=== PATIENT | female | born 1985 | race Caucasian/White ===

== ENCOUNTER 2016-05-08 13:14 | Emergency (ER) | payer MEDICAID ==
[2016-05-08 13:24] VITALS: RESP 16
--- NOTE | 2016-05-08 13:34 | EDPHY ---
H & P Smoking Status: Unknown if ever smoked Time Seen by Provider: 05/08/16 13:15 HPI/ROS: CHIEF COMPLAINT: Bipolar, noncompliant with medications HISTORY OF PRESENT ILLNESS: 30-year-old female presents to the emergency department by ambulance on M1 hold. The patient has a history of bipolar. The patient states that she is not on any medications. Upon reviewing her past medical history, patient has a history of bipolar, PTSD and attention deficit hyperactivity disorder as well as mild mental retardation. The the patient in the past has been admitted and has been very resistant to receiving treatment. She does smoke marijuana. She denies any other substance abuse. She denies suicidal homicidal ideation. Currently she has no physical complaints. She states "I'm fine." She denies chest pain or difficulty breathing. Denies abdominal pain or vomiting. REVIEW OF SYSTEMS: Constitutional: No fever, no chills. Eyes: No double or blurry vision. ENT: No sore throat. Respiratory: No cough, no shortness of breath. Cardiac: No chest pain. Gastrointestinal: No abdominal pain, vomiting or diarrhea. Genitourinary: No dysuria. Musculoskeletal: No neck or back pain. Skin: No rashes. Neurological: No headache. (Rika Moy) Past Medical/Surgical History: Mild mental retardation, bipolar, PTSD, attention deficit hyperactivity disorder , cholecystectomy (Rika Moy) Social History: Single and lives with her father in [place] (Rika Moy) Physical Exam: General Appearance: Alert, no distress. No physical signs of trauma to her head. Eyes: Pupils equal and round. Extraocular motions are all intact. ENT: Mouth: Mucous membranes moist. Respiratory: No wheezing, rhonchi, or rales, lungs are clear to auscultation. Cardiovascular: Regular rate and rhythm. Gastrointestinal: Abdomen is soft and nontender, no masses, no rebound or guarding, bowel sounds normal. Neurological: Alert and oriented x 3, cranial nerves II through XII grossly intact Skin: Warm and dry, no rashes. Musculoskeletal: Nontender to palpate along the cervical, thoracic or lumbar spine. Neck is supple. Extremities: Full range of motion and no peripheral edema. Psychiatric: Patient is oriented X 3, there is no agitation. (Yumi Moya M) Constitutional: Initial Vital Signs Temperature (C) 37.6 C 05/08/16 13:22 Heart Rate 115 H 05/08/16 13:22 Respiratory Rate 16 05/08/16 13:22 Blood Pressure 132/85 H 05/08/16 13:22 O2 Sat (%) 95 05/08/16 13:22 O2 Delivery Mode Room Air Allergies/Adverse Reactions: diazepam [From Valium] Allergy (Verified 01/08/13 17:18) lorazepam [From Ativan] Allergy (Verified 01/08/13 17:18) Home Medications: Medication Instructions Recorded NK [No Known Home Meds] 05/08/16 Medical Decision Making ED Course/Re-evaluation: 30-year-old female presents to the emergency department on M1 hold. She has a history of bipolar and has been noncompliant with medications. The patient has methamphetamines in her system and therefore will not be able to be evaluated by mental health for several hours. She became increasingly agitated and for her safety as well as the staff safety, she was given 5 mg of IM Haldol. She is sleeping comfortably now and will be evaluated by mental health likely tomorrow. (Rika Moy) 0400: No acute events overnight. Patient sleeping. Patient signed over to Dr. Enrique at 7am shift-change. Patient [id number]: evaluated at this time, very sleepy, cant keep eyes open. Will need to re-eval in Am. (Jose Luis Carlson) I assumed care of this patient at 7:00 a.m.. Mental health evaluation was performed this morning. She does not meet criteria for continued 72 hour hold. She is not felt to be a danger to herself and others. She has agreed to seek outpatient counseling. She is given information about methamphetamine abuse and resources available to her. I have lifted the 72 hour hold. She is discharged in stable condition. (Mellisa Enrique) Differential Diagnosis: Including but not limited to hypoglycemia, infectious process, electrolyte abnormality, head injury and intoxicants. (Rika Moy) Care Turn Over: Care will be turned over to Dr. Enoch Ramsey for disposition and plan (Rika Moy) - Data Points Laboratory Results: Laboratory Results 05/08/16 13:44 05/08/16 13:44 Medications Given: Discontinued Medications Haloperidol Lactate (Haldol Injection) 5 mg IM EDNOW ONE Stop: 05/08/16 16:42 Last Admin: 05/08/16 16:44 Dose: 5 mg Departure - Departure Disposition: Home, Routine, Self-Care Clinical Impression: Bipolar 1 disorder Condition: Good Instructions: Methamphetamine Abuse (ED) Additional Instructions: Follow up with your psychiatrist on as planned,Karon Heller, at [facility]. I am giving you some information about methamphetamine abuse. Local resources available to help you with this problem are the [facility] and [facility]. I will give you contact information for both of those. I am also referring you to [facility] for ongoing medical care as needed. If you would like to see one of the providers you will need to call and register to be a patient. Referrals: [facility] [Outside] - As per Instructions [facility] [Outside] - As per Instructions [facility] [Outside] - As per Instructions
[2016-05-08 13:51] LABS: % IMMATURE GRANULYOCYTES 0.3 % (0.0-1.1); ABSOLUTE IMMATURE GRANULOCYTES 0.04 10^3/uL (0.00-0.10); ADD DIFF? NO; ADD MORPH? NO; ADD SCAN? NO; ATYPICAL LYMPHOCYTE FLAG 10 (0-99); FRAGMENT RBC FLAG 0 (0-99); HEMATOCRIT 40.2 % (38.0-47.0); HEMOGLOBIN 14.5 g/dL (12.6-16.3); LEFT SHIFT FLG 0 (0-99); LIPEMIA HEMOLYSIS FLAG 90 (0-99); MEAN CELL HEMOGLOBIN 29.9 pg (27.9-34.1); MEAN CELL HEMOGLOBIN CONCENTR. 36.1 g/dL (32.4-36.7); MEAN CELL VOLUME 82.9 fL (81.5-99.8); MEAN PLATELET VOLUME 10.7 fL (8.7-11.7); PLATELET CLUMPS FLAG 10 (0-99); PLATELET COUNT 328 10^3/uL (150-400); RED BLOOD CELL COUNT 4.85 10^6/uL (4.18-5.33); RED CELL DISTRIBUTION WIDTH 12.6 % (11.5-15.2)
[2016-05-08 14:14] LABS: ANION GAP 16 mEq/L (8-16); CARBON DIOXIDE 17 mEq/l (22-31); CHLORIDE 108 mEq/L (97-110); CREATININE 0.8 mg/dL (0.6-1.0); ETHANOL SERUM < 10 mg/dL (0-10); GLOMERULAR FILTRATION RATE > 60; GLUCOSE 122 mg/dL (70-100); POTASSIUM 3.5 mEq/L (3.5-5.2); SODIUM 141 mEq/L (134-144)
[2016-05-08] MEDS ORDERED: HALOPERIDOL LACT 5 MG/ML INJ ONE (16:38)
[2016-05-08] MEDS ORDERED: HALOPERIDOL LACT 5 MG/ML INJ IM ONE (16:41)
[2016-05-08 22:45] VITALS: BP 112/77; TEMP 98.1; O2SAT 97
[2016-05-09 08:56] VITALS: PULSE 99
== END 2016-05-09 12:09 | disposition home or self-care (01) ==
LOC: EDUNIT#
DX: F31.9 Bipolar disorder, unspecified (principal)
CPT/HCPCS: 80305; G0480

== ENCOUNTER 2017-03-13 17:19 | Inpatient (IN) | payer MEDICAID ==
--- NOTE | 2017-03-13 17:24 | EDPHY ---
H & P Time Seen by Provider: 03/13/17 17:24 - Personal History Tetanus Vaccine Date: less than 8 years - Medical/Surgical History Hx Asthma: No Hx Chronic Respiratory Disease: No Hx Diabetes: No Hx Cardiac Disease: No Hx Renal Disease: No Hx Cirrhosis: No Hx Alcoholism: No Hx HIV/AIDS: No Hx Splenectomy or Spleen Trauma: No - Social History Smoking Status: Unknown if ever smoked Allergies/Adverse Reactions: diazepam [From Valium] Allergy (Verified 01/08/13 17:18) lorazepam [From Ativan] Allergy (Verified 01/08/13 17:18) Home Medications: Medication Instructions Recorded NK [No Known Home Meds] 05/08/16 Medical Decision Making ED Course/Re-evaluation: CHIEF COMPLAINT: Psychiatric evaluation HISTORY OF PRESENT ILLNESS: must have 4 elements: Location, Quality, Severity , Duration, Timing, Context, Modifying Factors, Associated Signs and Symptoms REVIEW OF SYSTEMS: A 10 point review of systems was performed and is negative with the exception of the elements mentioned in the history of present illness. PHYSICAL EXAM: General Appearance: Alert, well hydrated, appropriate, and non-toxic appearing. Head: Atraumatic without scalp tenderness or obvious injury Eyes: Pupils equal, round, reactive to light and accommodation, EOMI, no trauma , no injection. Ears: Clear bilaterally, no perforation, normal landmarks Nose: Atraumatic, no rhinorrhea, clear. Throat: There is no erythema or exudates, no lesions, normal tonsils, mucus membranes moist. Neck: Supple, 2+ carotid upstroke, nontender, no lymphadenopathy. Respiratory: No retractions, no distress, no wheezes, and no accessory muscle use. Lungs are clear to auscultation bilaterally. Cardiovascular: Regular rate and rhythm, no murmurs, rubs, or gallops. Bilateral carotid, radial, dorsalis pedis, and posterior tibial pulses intact. Good capillary refill all extremities. Gastrointestinal: Abdomen is soft, nontender, non-distended, no masses, no rebound, no guarding, no peritoneal signs. Musculoskeletal: Normal active ROM of all extremities, atraumatic. Neurological: Alert, appropriate, and interactive. The patient has normal DTRs and non-focal cranial nerves, motor, sensory, and cerebellar exam. Skin: No rashes, good turgor, no nodules on palpation. Past medical history: Past surgical history: Family history: Social history: DIFFERENTIAL DIAGNOSIS: The differential diagnosis for the patient's depression included but was not limited to functional and major depression, situational depression, medication side effect, drugs, and alcohol abuse. MEDICAL DECISION MAKING: Patient is in no acute distress and is hemodynamically stable. We are awaiting psychiatric team's evaluation. Patient has known history of psychiatric disorders and is here for evaluation. Departure - Departure Referrals: NONE *PRIMARY CARE P,. [Primary Care Provider] - As per Instructions
[2017-03-13] MEDS ORDERED: OLANZapine DISINTEGR 5 MG TAB PO ONE (17:34)
[2017-03-13] MEDS ORDERED: LORazepam 1 MG TAB PO ONE (17:34)
--- NOTE | 2017-03-13 17:37 | EDPHY ---
H & P Stated Complaint: The - Personal History Tetanus Vaccine Date: less than 8 years - Medical/Surgical History Hx Asthma: No Hx Chronic Respiratory Disease: No Hx Diabetes: No Hx Cardiac Disease: No Hx Renal Disease: No Hx Cirrhosis: No Hx Alcoholism: No Hx HIV/AIDS: No Hx Splenectomy or Spleen Trauma: No - Social History Smoking Status: Unknown if ever smoked Time Seen by Provider: 03/13/17 17:24 HPI/ROS: CHIEF COMPLAINT: "The greeenbelly dykes are eating out my vagina at the custodial " HISTORY OF PRESENT ILLNESS: 31-year-old female history of bipolar disorder arrives via police on an M1 hold after observed erratic, likely psychotic behavior. Per police the parents were called by the patient with manic psychotic statements by the patient and upon arrival patient exhibited similar behavior. History is challenging to pain and patient as she pre currently speaks about "green belly dykes that are trying to eat out my vagina at the custodial." REVIEW OF SYSTEMS: A ten point review of systems was performed and is negative with the exception of the items mentioned in the HPI PAST MEDICAL & SURGICAL HISTORY: bipolar disorder SOCIAL HISTORY:Denies illicit drug use PHYSICAL EXAM (Prior to examination, patient consented to physical exam, hands were washed and my usual and customary physical exam procedures followed) 1) GENERAL: Poorly kept, rapid, flight of ideas, word salad 2) HEAD: Normocephalic, atraumatic 3) HEENT: Pupils equal, round, reactive to light bilaterally. Sclera anicteric. 4) NECK: Full range of motion, no meningeal signs. 5) LUNGS: Clear auscultation bilaterally, no wheezes, no rhonchi, no retractions. 6) HEART: Regular rate and rhythm, no murmur, no heave, no gallop. 7) ABDOMEN: No guarding, no rebound, no focal tenderness, 8) MUSCULOSKELETAL: No peripheral edema or discoloration. 9) BACK: No visual or palpable abnormality. 10) SKIN: No rash, no petechiae. 11) Psychiatric: Patient is oriented X 3, there is no agitation. DIFFERENTIAL DIAGNOSIS: In no particular include but limited to suicidal ideation, homicidal ideation, psychosis, maryse (Sam,Lloyd Tessie) Constitutional: Initial Vital Signs Temperature (C) 36.8 C 03/13/17 17:37 Heart Rate 115 H 03/13/17 17:37 Respiratory Rate 16 03/13/17 17:37 Blood Pressure 143/87 H 03/13/17 17:37 O2 Sat (%) 98 03/13/17 17:37 O2 Delivery Mode Room Air Allergies/Adverse Reactions: diazepam [From Valium] Allergy (Verified 01/08/13 17:18) Home Medications: Medication Instructions Recorded Albuterol [Proventil Inhaler HFA 1 - 2 puffs IH Q4H PRN 03/14/17 (*)] Medical Decision Making ED Course/Re-evaluation: 5:40 p.m.: Patient is acutely manic and psychotic. Will administer antipsychotics. 7:18 p.m.: Patient agreed to oral Zyprexa and Ativan. She remains agitated, noncompliant, will not allow staff to obtain blood work are change into a gown. Will administer IM Haldol and re-evaluate. 9:00 p.m.: Re-evaluation, sleeping 11:00 p.m.: Care turned over to Dr. Jose Luis Carlson.. Mental health evaluation pending (Lloyd Vargas) 0700: Signed over at 7:00 a.m. shift change to Dr. Vargas. (Jose Luis Carlson) I took over care of this patient at 7:00 a.m.. This patient is on an M1 hold. The patient is psychotic and has a history of bipolar disorder. The patient was given Zyprexa and Haldol on arrival. The patient is to be admitted. Behavioral Health searching for placement. 3:30 p.m., this patient still awaits placement by [facility]. There have been no issues during my shift regarding her care. Care turned over at this time to Dr. Mellisa Enrique. (Patrick Ortiz) I assumed care of this patient from Dr. Ortiz at 3:00 p.m.. She remains on an M1 hold, awaiting placement. 10:45: Awaiting placement. 11:00: Patient not cooperating with MH electronics instructor, she is refusing to talk. Will give ativan 2 mg PO and Zyprexa 10 mg PO. Care transferred to Dr. Evans at 11 PM. (Mellisa Enriuqe) 5:30 a.m.- The patient has been stable throughout my shift. She was evaluated by EPS. They are looking for placement for the patient. At 7:00 a.m., I anticipate the case will be signed out to the oncoming provider Dr. Quintanilla pending placement. ( Tresa Evans) Other Provider: 0700 care assumed by me from Dr. Evans pending placement. 0855 patient has been accepted to [address] kristine armendariz. I have completed the EMTALA. (Howard Quintanilla) - Data Points Laboratory Results: Laboratory Results 03/13/17 20:15 03/13/17 20:15 Medications Given: Discontinued Medications Haloperidol Lactate (Haldol Injection) 5 mg IM EDNOW ONE Stop: 03/13/17 19:19 Last Admin: 03/13/17 20:43 Dose: Not Given Lorazepam (Ativan) 1 mg PO EDNOW ONE Stop: 03/13/17 17:35 Last Admin: 03/13/17 17:52 Dose: 1 mg Lorazepam (Ativan) 2 mg PO EDNOW ONE Stop: 03/14/17 23:09 Last Admin: 03/14/17 23:17 Dose: 2 mg Olanzapine (Zyprexa Zydis) 10 mg PO EDNOW ONE Stop: 03/13/17 17:35 Last Admin: 03/13/17 17:53 Dose: 10 mg Olanzapine (Zyprexa Zydis) 10 mg PO EDNOW ONE Stop: 03/14/17 23:09 Last Admin: 03/14/17 23:17 Dose: 10 mg Departure - Departure Clinical Impression: Acute psychosis Referrals: NONE *PRIMARY CARE P,. [Primary Care Provider] - As per Instructions
[2017-03-13] MEDS ORDERED: HALOPERIDOL LACT 5 MG/ML INJ IM ONE (19:18)
[2017-03-13 20:32] LABS: PLATELET COUNT 314 10^3/uL (150-400)
[2017-03-14] MEDS ORDERED: LORazepam 1 MG TAB PO ONE (23:08)
[2017-03-14] MEDS ORDERED: OLANZapine DISINTEGR 5 MG TAB PO ONE (23:08)
[2017-03-15] MEDS ORDERED: LORazepam 1 MG TAB PO ONE (09:29)
[2017-03-15] MEDS ORDERED: OLANZapine DISINTEGR 10 MG TAB PO ONE (09:29)
[2017-03-15] MEDS ORDERED: ALBUTEROL 60 PUFFS/8 GM MDI IH PRN (11:13)
[2017-03-15] MEDS ORDERED: MAG HYDROX/AL HYDROX/SIMETH 30 ML UDCUP PO PRN (11:14)
[2017-03-15] MEDS ORDERED: LORazepam 0.5 MG TAB PO PRN (11:14)
[2017-03-15] MEDS ORDERED: MAGNESIUM HYDROXIDE 30 ML UDCUP PO PRN (11:14)
[2017-03-15] MEDS ORDERED: OLANZapine DISINTEGR 10 MG TAB PO PRN (11:14)
[2017-03-15] MEDS ORDERED: NICOTINE POLACRILEX 2 MG GUM B PRN (11:14)
[2017-03-15] MEDS ORDERED: ACETAMINOPHEN 325 MG TAB PO PRN (11:14)
[2017-03-15] MEDS ORDERED: ALBUTEROL 200 PUFFS/18 GM MDI IH PRN (11:33)
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
[2017-03-15] MEDS: FLUTICASONE/SALMETER 100/50MCG DISKUS IH SCH (20:26)
--- NOTE | 2017-03-15 21:50 | GCON ---
[f rep st] CONSULTATION INTERNAL MEDICINE CONSULTATION DATE OF CONSULTATION: 03/15/[address] Nixon. REASON FOR REFERRAL: Medical clearance for inpatient behavioral health stay. HISTORY OF PRESENT ILLNESS: This patient was brought in by police on an M1 hold for erratic and likely psychotic behavior. She was agitated in the emergency department and required emergency medication with olanzapine and haloperidol. She was eventually evaluated by the mental health team and admitted for further psychiatric care. She currently is without acute medical complaint, but reports that she has asthma and would like to be on Advair. PAST MEDICAL HISTORY: 1. Mental health issues with diagnoses of acute psychosis and bipolar 1 disorder. 2. Asthma. PAST SURGICAL HISTORY: She denies any surgeries. MEDICATIONS: She was on albuterol. ALLERGIES: There is an allergy listed to diazepam. SOCIAL HISTORY: She is currently homeless and is not working. She is a cigarette smoker. FAMILY HISTORY: The patient was adopted and does not know her family history. REVIEW OF SYSTEMS: She reports a recent episode of black stool and says that this happened because her intestines were frozen. She currently reports mild abdominal pain in the right upper quadrant. She denies fevers or chills, weight gain, weight loss, cough, dyspnea, nausea, or vomiting. She reports she has some constipation. She has a good appetite. She denies dysuria or urinary frequency. Otherwise, a 10-point review of systems was negative. PHYSICAL EXAMINATION: VITAL SIGNS: Blood pressure is 132/78. At 11 this morning, her pulse was recorded as 146. Respiratory rate is 18. Oxygen saturation is 98% on room air. Temperature is 36.8 degrees centigrade. Her weight is 81 kg, for a body mass index of 28. GENERAL: This is an overweight- appearing woman, sitting at a table in the dining room eating cereal with milk. Cooperative and in no acute distress. HEENT: Extraocular movements are intact. Pupils are equal, round, and reactive to light. Mucous membranes are moist. Dentition is in fair condition. She has a moderately crowded airway, Mallampati class 3. NECK: Supple. HEART: Regular rate and rhythm, with no murmurs, rubs, or gallops, and she is currently not tachycardic. LUNGS: Clear to auscultation bilaterally. ABDOMEN: Soft. Slightly tender in the right upper quadrant. Nondistended and with normoactive bowel sounds. EXTREMITIES: There is no cyanosis, clubbing, or edema. NEUROLOGIC: She is alert and oriented x3. Cranial nerves 2-12 are grossly intact. There is no focal weakness. Sensation is intact to light touch. LABORATORY STUDIES: From the emergency department: CBC was normal other than a slight decrement of absolute basophils, of no clinical significance. Serum chemistry revealed an elevated chloride at 111. Otherwise, renal function and electrolytes were within normal limits. Beta hCG was negative for . Toxicology screens on the urine and serum were negative for ethyl alcohol, salicylates, acetaminophen, or substances of abuse. On review of past labs, there is a CBC from 05/08/2016, and it was essentially the same other than an elevated white blood cell count, as it is currently. ASSESSMENT AND RECOMMENDATIONS: 1. Mental health problems. Pending further evaluation and management per Psychiatry and the mental health team. 2. Questionable history of asthma. She reports that she was on Advair per [facility]. Per her request, will order Advair. Albuterol has already been ordered. It is unclear to me whether she truly has asthma, as she currently has a benign exam. She should follow up with her primary care provider after discharge to determine whether she has an ongoing need for Advair. 3. Tobacco dependence syndrome. She is unwilling to consider smoking cessation. 4. Abdominal pain. Unclear complaint regarding possible melena and her "intestines freezing." Lack of an elevated white blood cell count is reassuring. I will add on liver function tests, as she has right upper quadrant discomfort on exam. I see no medical contraindications to this patient's continued stay in the inpatient behavioral health unit or to any psychiatric medications or procedures. Thank you very much for including me in the care of this patient, and please do not hesitate to contact me or the hospitalist service should there be a need for further medical evaluation. /[id number]/MODL MTDD
[2017-03-16 07:01] VITALS: RESP 16; TEMP 98.4
[2017-03-16] MEDS: FLUTICASONE/SALMETER 100/50MCG DISKUS IH SCH ×2 (08:31→20:11)
--- NOTE | 2017-03-16 15:17 | SOAPPROG ---
[facility] Progress Note Assessment/Plan: Assessment: Plan: 03/16/17 15:16 Schizoaffective D/o: Is likely at functional baseline. It appears futile to seek COM as pt will certainly not take them after d/c. She does not appear to meet criteria for STC. Will convert to voluntary to allow time for d/c planning. Subjective: Pt seen, discussed with staff. Reports feeling "just fine." Pleasantly conversant with me. Demonstrates moderate level of psychomotor agitation, pacing. Cooperative, no behavioral issues or aggression. Continues to refuse all psychotropic meds. Mother called and said psychotropic medications have not been helpful for her in the past. Pt continues to threaten "self-harm" if she is discharged to the street. Objective: Vital Signs Temp Pulse Resp BP Pulse Ox 36.9 C 79 16 129/68 H 94 03/16/17 06:00 03/16/17 06:00 03/16/17 06:00 03/16/17 06:00 03/16/17 06:00 - Time Spent With Patient Time Spent With Patient: 25" ICD10 Worksheet Patient Problems: Problems Problem Status Onset Acute psychosis Acute
[2017-03-16] MEDS ORDERED: MELATONIN 3 MG TAB PO SCH (21:00)
[2017-03-17 06:40] VITALS: BP 128/71; PULSE 71; O2SAT 96
[2017-03-17] MEDS: FLUTICASONE/SALMETER 100/50MCG DISKUS IH SCH (08:58)
--- NOTE | 2017-03-18 02:18 | BDS ---
[f rep st] BEHAVIORAL HEALTH DISCHARGE SUMMARY REASON FOR ADMISSION: Patient is a 31-year-old female with a history of Bipolar diagnosis, mild mental retardation, impulsive and aggressive behaviors and chronic treatment non-compliance. She was admitted to our unit on transfer from the emergency department due to some disruptive behaviors in the community. She apparently has been homeless for some period of time, which she states is a week, but it is unclear. She called her parents in crisis, and they met her at a parking lot at [employer], and she was extremely agitated, screaming, threatening and was in some form physically aggressive with them. This is not a new thing for her as she admits to hating them. Regardless, police were called. She was brought to the hospital and admitted for further evaluation. ADMITTING DIAGNOSES: 1. Bipolar I disorder, most recent episode manic, severe, with psychosis. 2. History of post-traumatic stress disorder. 3. 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 4. Homelessness. 5. Family conflicts. 6. Lack of supports. 7. Chronic illness. ADMITTING PHYSICAL EXAMINATION: Performed by Dr. Juan Perrin reveals no acute physical findings. ADMISSION LABORATORY: CBC is normal. Serum chemistries are normal. Liver function is normal. Beta HCG was negative. Urine drug screen was negative and negative again on repeat. HOSPITAL COURSE: Patient was [facility] on an M1 hold. She was mildly agitated, talking in a fairly pressured manner, displaying some disorganized thoughts. She had a lot of somatic preoccupations, stating that she was having bowel problems because her intestines froze and that she could not be homeless outside any longer. She stated in the beginning of our initial evaluation that she needed a place to live or she would "say I am suicidal so you can't discharge me." She stated that she believes that we can get her an apartment and that she will essentially claim to be suicidal until this occurs. I informed her from the very beginning that we have no ability to get housing for people and that she would likely have to go to a long-term when she left. She states that she will not go to a long-term, though she has never been to one because of a delusion about "green-bellied lesbians" and goes into graphic detail about sexual acts. She also refused to contact or work with her parents, though they called the unit numerous times requesting to meet with her and to make a plan. She described them as "my paper parents" because she is adopted and stated that she hates them. I discussed with the patient potential treatments, and she refuses all medications. Past treatment records, her parents report and her classification case manager from [facility]' report indicate that medications have not been helpful to her in the past. This may be due to concomitant drug use and noncompliance. During her stay, she received no medications whatsoever except for some E-meds she got in the ER for agitation. Pt continued to refuse all medications, all therapeutic interactions and any efforts to engage her in discharge planning. On the day of discharge it was agreed that she had achieved maximum benefit from being in the hospital and informed her she was to be discharged. She stated to me that she was not ready to leave because she did not have a home. I told her that I had already discussed this with her, that we were not able to provide housing, and she stated, "Then I guess I'm suicidal." When I informed her that that was insincere and would not keep her from discharging, she said, "Fine, then I am homicidal too." She then chun to the nurses' station where she announced loudly, "I need to be on suicide and homicide precautions and I can't leave the hospital." When I informed her that she would still discharge as planned, she said to me, "Fine, then I will go to the ER and tell them I'm suicidal and homicidal and they will have to readmit me." I discussed with her the fact that that decision would likely come to me and that I would not readmit her. Several hours later, I was contacted and notified that she was indeed in the emergency department stating she was suicidal and homicidal and needed to be back in the hospital. At the time of this dictation, her disposition is unknown. CONDITION ON DISCHARGE: Stable. Despite her disingenuous statements, I did not deem her to be an imminent risk to herself or others. She remained delusional, though this is a chronic process and not acute, that is not amenable to medications per her history. DISCHARGE MEDICATIONS: Albuterol and Combivent inhalers. DISCHARGE DIAGNOSES: 1. Bipolar I disorder, most recent episode manic. 2. Chronic psychosis, likely schizoaffective disorder bipolar type. 3. Mild mental retardation. 4. Homelessness. 5. Family conflicts. 6. Lack of resources. 7. Chronic illness. 8. Malingering DISPOSITION: Patient was released from [address] [place] [address] to her own recognizance. She continued to refuse to allow her FOLLOWUP: The patient was given appointments at [facility] for next week with her classification case manager. LEGAL COURSE: Patient was converted to a voluntary status at the expiration of her M1 hold. /[id number]/MODL MTDD
== END 2017-03-17 11:37 | disposition home or self-care (01) | DRG 885 ==
LOC: BBEH 03-15 10:07
PROVIDERS: ADMIT Psychiatry & Neurology Psychiatry; ATTEND Psychiatry & Neurology Psychiatry
DX: F31.2 Bipolar disorder, current episode manic severe with psychotic features (principal); J45.909 Unspecified asthma, uncomplicated; F17.200 Nicotine dependence, unspecified, uncomplicated; R10.9 Unspecified abdominal pain; F70 Mild intellectual disabilities; F43.10 Post-traumatic stress disorder, unspecified; Z59.0 Homelessness; Z91.14 Patient's other noncompliance with medication regimen
CPT/HCPCS: 80305; G0480; J1630

== ENCOUNTER 2017-03-17 12:29 | Emergency (ER) | payer MEDICAID ==
--- NOTE | 2017-03-17 12:33 | EDPHY ---
H & P Time Seen by Provider: 03/17/17 12:30 HPI/ROS: CHIEF COMPLAINT: [ ] HISTORY OF PRESENT ILLNESS: [31-year-old female history of schizoaffective disorder, arrives by ambulance. Patient was discharged from [address] yesterday ] [PRIMARY CARE PROVIDER:][ ] REVIEW OF SYSTEMS: [A ten point review of systems was performed and is negative with the exception of the items mentioned in the HPI] [Constitutional: No fever, no chills. Eyes: No visual complaint ENT: No sore throat. Cardiovascular: No chest pain, no palpitations. Respiratory: No cough, no shortness of breath. Gastrointestinal: No abdominal pain, no vomiting. Genitourinary: No urinary complaints Musculoskeletal: No back pain. Skin: No rashes. No lesions. Neurological: No headache. Aside from elements discussed in the HPI, a comprehensive 10 point review of systems was reviewed and is negative.] [PAST MEDICAL & SURGICAL HISTORY:] [ No pertinent medical or surgical history ] SOCIAL HISTORY:[ ] [FAMILY HISTORY:][ No pertinent family history ] PHYSICAL EXAM (Prior to examination, patient consented to physical exam, hands were washed and my usual and customary physical exam procedures followed) 1) GENERAL: [Well-developed, well-nourished, alert and oriented. Appears to be in no acute distress.] 2) HEAD: [Normocephalic, atraumatic] 3) HEENT: [Pupils equal, round, reactive to light bilaterally. Sclera anicteric. ] [Nasopharynx, oropharynx, clear, no lesions. ] [Ears bilaterally with normal tympanic membranes.] 4) NECK: [Full range of motion, no meningeal signs.] 5) LUNGS: [Clear auscultation bilaterally, no wheezes, no rhonchi, no retractions.] 6) HEART: [Regular rate and rhythm, no murmur, no heave, no gallop.] 7) ABDOMEN: [No guarding, no rebound, no focal tenderness, negative McBurney's, negative Hancock's, negative Rovsing's, negative peritoneal sign], 8) MUSCULOSKELETAL: [Moving all extremities, no focal areas of tenderness, no obvious trauma. No peripheral edema or discoloration.] 9) BACK: [No CVA tenderness, no midline vertebral tenderness, no fluctuance, no step-off, no obvious trauma, no visual or palpable abnormality.] 10) SKIN: [No rash, no petechiae.] [11) Psychiatric: Patient is oriented X 3, there is no agitation.] DIFFERENTIAL DIAGNOSIS: [ ] - Personal History Tetanus Vaccine Date: less than 8 years - Medical/Surgical History Hx Asthma: No Hx Chronic Respiratory Disease: No Hx Diabetes: No Hx Cardiac Disease: No Hx Renal Disease: No Hx Cirrhosis: No Hx Alcoholism: No Hx HIV/AIDS: No Hx Splenectomy or Spleen Trauma: No Other PMH: Asthma, psych - Social History Smoking Status: Heavy smoker Allergies/Adverse Reactions: diazepam [From Valium] Allergy (Verified 01/08/13 17:18) Home Medications: Medication Instructions Recorded Albuterol [Proventil Inhaler HFA 1 - 2 puffs IH Q4H PRN #1 mdi 03/17/17 (*)] Fluticasone/Salmeter 100/50Mcg 1 puffs IH BID #1 disk 03/17/17 [Advair 100/50 (*)] Medical Decision Making ED Course/Re-evaluation: 12:34 p.m.: I reviewed the patient's old medical records including progress note by Dr. Nixon, I am familiar with her prior emergency department visits.
[2017-03-17] MEDS ORDERED: OLANZapine DISINTEGR 5 MG TAB PO ONE (14:15)
[2017-03-17] MEDS ORDERED: LORazepam 1 MG TAB PO ONE (14:15)
--- NOTE | 2017-03-17 14:15 | EDPHY ---
H & P Stated Complaint: JUST DC'D FROM [facility]. IS NOW HOMICIDAL - Personal History LMP (Females 10-55): Unknown Current Tetanus/Diphtheria Vaccine: Yes Current Tetanus Diphtheria and Acellular Pertussis (TDAP): Yes Tetanus Vaccine Date: less than 8 years - Medical/Surgical History Hx Asthma: No Hx Chronic Respiratory Disease: No Hx Diabetes: No Hx Cardiac Disease: No Hx Renal Disease: No Hx Cirrhosis: No Hx Alcoholism: No Hx HIV/AIDS: No Hx Splenectomy or Spleen Trauma: No Other PMH: Asthma, psych - Social History Smoking Status: Heavy smoker Time Seen by Provider: 03/17/17 12:30 HPI/ROS: CHIEF COMPLAINT: "I was discharged too early " HISTORY OF PRESENT ILLNESS: 31-year-old female history of schizoaffective disorder, homelessness, was discharged from [address] yesterday, self presents to the ER after calling for an ambulance stating that she believes she was discharged prematurely states that she is still feeling agitation, still having thoughts of hurting other people, "If I leave here I'll go to the [employer] store and buy a crococile and stick in the crotch of that cunt." She denies suicidal or homicidal ideations. Denies drug or alcohol use. REVIEW OF SYSTEMS: A ten point review of systems was performed and is negative with the exception of the items mentioned in the HPI PAST MEDICAL & SURGICAL HISTORY: Schizoaffective disorder SOCIAL HISTORY: Homeless PHYSICAL EXAM (Prior to examination, patient consented to physical exam, hands were washed and my usual and customary physical exam procedures followed) 1) GENERAL: Poorly kept. Agitated. 2) HEAD: Normocephalic, atraumatic 3) HEENT: Pupils equal, round, reactive to light bilaterally. Sclera anicteric. 4) NECK: Full range of motion, no meningeal signs. 5) LUNGS: Clear auscultation bilaterally, no wheezes, no rhonchi, no retractions. 6) HEART: Regular rate and rhythm, no murmur, no heave, no gallop. 7) ABDOMEN: No guarding, no rebound, no focal tendernes, 8) MUSCULOSKELETAL: No peripheral edema or discoloration.] 9) BACK: No visual or palpable abnormality. 10) SKIN: No rash, no petechiae. 11) Psychiatric: Patient is oriented X 3, agitated, flight of ideas DIFFERENTIAL DIAGNOSIS: In no particular include but limited to depression, maryse, psychosis (Lloyd Vargas Tessie) Constitutional: Initial Vital Signs Temperature (C) 36.7 C 03/17/17 13:15 Heart Rate 90 03/17/17 13:15 Respiratory Rate 19 03/17/17 13:15 Blood Pressure 130/92 H 03/17/17 13:15 O2 Sat (%) 96 03/17/17 13:15 O2 Delivery Mode Room Air Allergies/Adverse Reactions: No Known Allergies Allergy (Unverified 03/18/17 11:46) Home Medications: Medication Instructions Recorded Albuterol [Proventil Inhaler HFA 1 - 2 puffs IH Q4H PRN #1 mdi 03/17/17 (*)] Fluticasone/Salmeter 100/50Mcg 1 puffs IH BID #1 disk 03/17/17 [Advair 100/50 (*)] ALPRAZolam [Xanax 0.25 MG (*)] 0.25 mg PO DAILY PRN 03/18/17 LORazepam [Ativan (*)] 0.5 mg PO DAILY PRN 03/18/17 Medical Decision Making ED Course/Re-evaluation: 2:13 p.m.: Phone consultation with EPS medical driver, Jose J, who will evaluate patient after standard laboratory orders obtained. 5:00 p.m.: Care turned over to Dr. Robles Interiano, awaiting mental health evaluation. Patient in the ER voluntarily, not currently on a mental health hold or D tender. She was given oral Ativan earlier, declined Zyprexa. At this time she is eating food, calm, cooperative. (Lloyd Vargas Tessie) 2129: Pt is signed out to me at change of shift by Dr. Interiano. Awaiting evaluation. 2299: The patient is signed out to Dr. Quintanilla at change of shift. (Viki Hernandez) Patient remained stable on my shift. Care was turned over at 11:[address] Quintanilla (IvetteEmmett) Other Provider: PHYSICIAN DOCUMENTATION: The patient was evaluated and managed by the Physician Plumbing Technician and myself. I have reviewed the chart and agree with the findings and plan of care as documented. In addition, I examined the patient myself. History confirmed as recent discharge for inpatient psychiatry. Physical findings as follows: Patient is currently cooperative and calm in the emergency department. I am the secondary supervising physician. 1725: patient placed on a hold for delusional and danger to others. Plan for inpatient placement at this time. References to "Captsriram Horton "and a non-existent twin brother, homicidal thoughts. The patient apparently did make explicit homicidal threats to Fina Abernathy and her , and the medical driver tells me that these people are aware and the police are involved. (Robles Interiano) 03/17 2299 patient signed out to me from Dr. Hernandez pending placement. 03/18 699 patient signed out to Dr. Mackey pending placement. There been no issues during my care this patient overnight. 03/18 2299 care Re assumed by me from Dr. Steele pending placement. 03/19 699 patient signed back out to Dr. Mackey pending placement. No issues during my care this patient overnight. (Howard Quintanilla) I assumed care of the patient at 0700. She remained stable throughout my shift. Psychiatric placement is still pending. She will be turned over to Dr. Steele at 3:00 p.m.. I spent some time with the patient at 7:30 a.m. in the morning. I reviewed Dr. Kishor Nixon's discharge summary. The patient tells me she is no longer suicidal or homicidal. She does feel as if she can contract for safety. She would like to be discharged from the emergency department in get her therapy dog. I do believe the patient likely has been malingering over the past several days secondary to her homelessness. The patient continues to report she has no interest in taking medications for her bipolar mood disorder. She is a competent decision maker to do so. The futility of inpatient psychiatric hospitalization was clearly demonstrated during the patient's last admission to the inpatient unit at [facility]. We have made arrangements for the patient to get her therapy dogs at 10 o'clock today when the animal senior living opens. I have vacated the patient's 72 hr mental health hold at 8 o'clock in the morning (Joey Mackey) - Data Points Laboratory Results: Laboratory Results 03/17/17 14:20 03/17/17 14:20 Medications Given: Discontinued Medications Lorazepam (Ativan) 1 mg PO EDNOW ONE Stop: 03/17/17 14:16 Last Admin: 03/17/17 14:23 Dose: 1 mg Olanzapine (Zyprexa Zydis) 5 mg PO EDNOW ONE Stop: 03/17/17 14:16 Last Admin: 03/17/17 14:23 Dose: Not Given Departure - Departure Disposition: Home, Routine, Self-Care Clinical Impression: Schizoaffective disorder Qualifiers: Schizoaffective disorder type: unspecified Qualified Code(s): F25.9 - Schizoaffective disorder, unspecified Condition: Good Instructions: Bipolar Disorder (ED) Additional Instructions: 1. Please follow-up with the mental health resources provided in the ED today. 2. [facility] does operate a 24/7 psychiatric crisis unit located at [address] [place] [address]. The telephone number for the 24 hour crisis center is [phone]. 3. Please return to the ED if you are feeling suicidal, having thoughts of harming yourself/others or should you feel unsafe or have worsening symptoms. Referrals: [facility] [Outside] - As per Instructions
[2017-03-17 14:32] LABS: PLATELET COUNT 301 10^3/uL (150-400)
[2017-03-18 23:20] VITALS: RESP 20
[2017-03-19 09:34] VITALS: BP 138/77; PULSE 81; TEMP 97.5; O2SAT 94
--- NOTE | 2017-03-19 12:55 | ASMTCMCOM ---
CM Note CM Note Notes: Requested to assist patient with transportation to the [facility] [employer] ) where her dog, Captain Horton, has been staying for the last couple of days during pt's ED visit. Reportedly pt's adoptive parents Pavan and Ale Abernathy (c:[phone], h: [phone]) relinquished the dog to the [employer] because patient was in the ED and they were unable to care for the dog. Medicaid cab (conf# [id number]) arranged for patient to go to the [employer] at [facility] [place] [address]. This CM called the [employer] and confirmed dog is there and that patient will be able to reclaim him. CM available for further assistance if needed. Date Signed: 03/19/2017 12:55 PM Electronically Signed By:Paulina Funk RN
--- NOTE | 2017-03-19 12:58 | ASDISCHSUM ---
Discharge Information Plan Status:Homeless/Fdc Medically Cleared to Leave: Discharge Date:03/19/2017 09:55 AM CM D/C Disposition:Streets (Homeless) ADT D/C Disposition:Home, Routine, Self-Care Projected Discharge Date:03/19/2017 09:55 AM Transportation at D/C:Medicaid Transportation Discharge Delay Reason: Follow-Up Date:03/19/2017 09:55 AM Discharge Slot: Final Diagnosis: Placement Information Patient Contact Information Contact Name:STALINPEEWEE Relationship:Father Address:[address] [place] [address] City:[place] Alternate Phone: [facility]/Zip Code:[place] [address] Email: Financial Information Financial Class: Primary Plan Desc:MEDICAID [place] Primary Plan Number:[id number] Secondary Plan Desc: Secondary Plan Number: Assessment Information [facility] CM Progress Note CM Note CM Note Notes: Requested to assist patient with transportation to the [facility] ([phone]) where her dog, Captain Horton, has been staying for the last couple of days during pt's ED visit. Reportedly pt's adoptive parents Pavan and Ale Abernathy (c:[phone], h: [phone]) relinquished the dog to the [facility] because patient was in the ED and they were unable to care for the dog. Medicaid cab (conf# [id number]) arranged for patient to go to the [facility] at [address] [place] [address]. This CM called the [facility] and confirmed dog is there and that patient will be able to reclaim him. CM available for further assistance if needed. Date Signed: 03/19/2017 12:55 PM Electronically Signed By:Paulina Funk RN LACE LACE Acuity / Level of Answers: No Care: Did the patient have an inpatient admission? # of Emergency department Answers: 1-2 visits in the last 6 months Social determinants Answers: Homelessness (street, halfway) Mental health diagnosis (anxiety, depression, pers onality disorders, etc.) Lack of community resources and/or lack of social support (no pcp, lives alone, transportation, ivone d) Score: 11 Date Signed: 03/19/2017 12:56 PM Electronically Signed By:Paulina Funk RN Intervention Information Intervention Type:Transportation Date of Service:03/19/2017 12:56 PM Patient Type:Emergency Room Staff Member:STEPHON Funk [place] Hours:0.25 Discipline:Non Profit Financial Controller Severity: Comment:Medicaid cab arranged for patient; [facility] erich # [id number]
== END 2017-03-19 09:55 | disposition home or self-care (01) ==
LOC: EDUNIT#
DX: F25.9 Schizoaffective disorder, unspecified (principal); F17.200 Nicotine dependence, unspecified, uncomplicated; J45.909 Unspecified asthma, uncomplicated
CPT/HCPCS: 80305; G0480